=== PATIENT | male | born 1990 | race Caucasian/White ===

== ENCOUNTER 2018-06-07 21:10 | Emergency (ER) | payer OTHER ==
[~2018-06-07] VITALS: Ht 170.2 cm; Wt 77.1 kg
[2018-06-07 21:22] VITALS: Ht 170.2 cm; Wt 77.1 kg
[2018-06-07 22:43] LABS: BASOPHIL % 0.2 % (0-2); PLATELET COUNT 237 x10^3mcL (130-400); RED CELL DISTRIBUTION WIDTH 12.9 % (11.5-14.5)
[2018-06-07 22:52] LABS: CALCIUM 8.8 mg/dL (8.5-10.1); CARBON DIOXIDE 27.8 mmol/L (21-32); CHLORIDE SERUM 102 mmol/L (98-107); GFR1 > 60 mL/min; GLUCOSE SERUM 99 mg/dL (74-106); POTASSIUM SERUM 3.2 mmol/L (3.5-5.1); SODIUM SERUM 137 mmol/L (136-145)
[2018-06-07 22:56] LABS: ALBUMIN 3.8 g/dL (3.4-5.0); ALKALINE PHOSPHATASE 87 U/L (46-116); ALT/SGPT 100 U/L (16-63); AST/SGOT 33 U/L (15-37); BILIRUBIN TOTAL 1.5 mg/dL (0.20-1.00); LIPASE 141 IU/L (73-393); TOTAL PROTEIN, SERUM 7.5 g/dL (6.4-8.2)
[2018-06-08 00:43] VITALS: BP 133/92
== END 2018-06-08 00:44 | disposition home or self-care (01) ==
LOC: ED 21:10
PROVIDERS: Emergency Medicine
DX: R05 Cough (principal); R11.10 Vomiting, unspecified; Z98.890 Other specified postprocedural states
CPT/HCPCS: 36415; 87804

== ENCOUNTER 2019-11-09 23:00 | Emergency (ER) | payer OTHER ==
[~2019-11-09] VITALS: Ht 170.2 cm; Wt 81.6 kg
[2019-11-09 23:01] VITALS: Ht 170.2 cm; Wt 81.6 kg
[2019-11-10 00:43] VITALS: BP 138/90
== END 2019-11-10 00:43 | disposition home or self-care (01) ==
LOC: ED 23:00
DX: J20.9 Acute bronchitis, unspecified (principal); Z98.890 Other specified postprocedural states
CPT/HCPCS: Q0092

== ENCOUNTER 2020-04-24 21:26 | Emergency (ER) | payer OTHER, MEDICAID, SELFPAY ==
[~2020-04-24] VITALS: Ht 170.2 cm; Wt 77.1 kg
[2020-04-24 21:29] VITALS: Ht 170.2 cm; Wt 77.1 kg
[2020-04-24 22:13] VITALS: BP 142/93
== END 2020-04-24 22:13 | disposition home or self-care (01) ==
LOC: ED 21:26
DX: J40 Bronchitis, not specified as acute or chronic (principal); Z98.890 Other specified postprocedural states